=== PATIENT | female | born 1985 | race Caucasian/White ===

== ENCOUNTER 2017-12-11 15:30 | Outpatient (CLI) | payer OTHER | END 2017-12-11 15:31 | disposition home or self-care (01) | LOC: RT.S 15:30 | PROVIDERS: ATTEND Nurse Practitioner Family | DX: R07.9 Chest pain, unspecified (principal) | CPT/HCPCS: 93005 ==

== ENCOUNTER 2019-12-09 18:22 | Outpatient (CLI) | payer OTHER ==
[2019-12-09 20:17] LABS: RHEUMATOID FACTOR NEGATIVE (Negative)
[2019-12-14 07:44] LABS: ANA SCREEN NEGATIVE (NEGATIVE)
== END 2019-12-09 18:23 | disposition home or self-care (01) ==
LOC: LAB.S 18:22
PROVIDERS: ATTEND Family Medicine
DX: R51 Headache (principal); M25.531 Pain in right wrist
CPT/HCPCS: 36415; 85651; 86038; 86140; 86430